=== PATIENT | female | born 1950 | race Two or more races ===

== ENCOUNTER 2023-11-11 18:08 | Emergency (ER) | payer OTHER ==
[~2023-11-11] VITALS: Ht 165.1 cm; Wt 56.2 kg
[2023-11-11] MEDS ORDERED: MIRT-121 GT (18:21)
[2023-11-11] MEDS ORDERED: ESCI10TA GT (18:21)
[2023-11-11] MEDS ORDERED: ACET-2605 GT (18:21)
[2023-11-11] MEDS ORDERED: NALO4SPR NS (18:21)
[2023-11-11] MEDS ORDERED: ALPR0.5T8 GT (18:21)
[2023-11-11] MEDS ORDERED: QUET50TA GT (18:21)
[2023-11-11] MEDS ORDERED: SOD250TA2 GT (18:21)
[2023-11-11] MEDS: DIATR MEGLU/DIATRIZOATE SODIUM 30 ML BOTTLE PO ONE (20:00)
[2023-11-11 21:13] LABS: BASOPHILS % (AUTO) 0.2 % (0.0-2.0); EOSINOPHILS # (AUTO) 0.2 K/uL (0.0-0.7); EOSINOPHILS % (AUTO) 2.4 % (0.0-7.0); HEMATOCRIT 36.8 % (31.2-41.9); HEMOGLOBIN 12.3 g/dL (10.9-14.3); LYMPHOCYTES # (AUTO) 1.6 K/uL (0.8-4.8); MEAN CORPUSCULAR HEMOGLOBIN 28.9 uug (24.7-32.8); MEAN CORPUSCULAR HGB CONC 34 g/dL (32.3-35.6); MEAN CORPUSCULAR VOLUME 86.3 fL (75.5-95.3); MONOCYTES # (AUTO) 0.5 K/uL (0.1-1.30); MONOCYTES % (AUTO) 7.8 % (0.0-11.0); NEUTROPHILS # (AUTO) 4.3 K/uL (1.8-8.9); NEUTROPHILS % (AUTO) 64.6 % (38.5-71.5); PLATELET COUNT (AUTO) 210 K/uL (179-408); RED BLOOD CELL COUNT(AUTO) 4.27 MIL/uL (3.63-4.92); RED CELL DISTRIBUTION WIDTH 14.1 % (12.3-17.7); WHITE BLOOD COUNT (AUTO) 6.6 K/uL (3.8-11.8)
[2023-11-11 21:14] LABS: DIFFERENTIAL COMMENT 1
[2023-11-11 21:20] LABS: CALCIUM 9.7 mg/dL (8.5-10.1); CARBON DIOXIDE 29 mmol/L (21-32); CHLORIDE 106 mmol/L (98-107); CREATININE 0.3 mg/dL (0.6-1.3); GLUCOSE 97 mg/dL (74-106); POTASSIUM 3.3 mmol/L (3.5-5.1); SODIUM SERUM 142 mmol/L (136-145); UREA NITROGEN, BLOOD 18 mg/dL (7-18)
[2023-11-11] MEDS: IV LACTATED RINGERS SOLUTION 1,000 ML BAG IV ONE (22:57)
[2023-11-12 04:25] VITALS: O2SAT 94
== END 2023-11-12 05:56 | disposition home or self-care (01) ==
LOC: ER 18:12
DX: K94.23 Gastrostomy malfunction (principal); F03.90 Unspecified dementia, unspecified severity, without behavioral disturbance, psychotic disturbance, mood disturbance, and anxiety; Z79.899 Other long term (current) drug therapy; Y83.8 Other surgical procedures as the cause of abnormal reaction of the patient, or of later complication, without mention of misadventure at the time of the procedure
CPT/HCPCS: 99284; 96360; 80048; 85025; 36415; 74018; J7120; A4606; A4663; Q9963